=== PATIENT | male | born 1955 | race Caucasian/White ===

== ENCOUNTER 2017-06-11 13:37 | Day surgery (SDC) | payer BC ==
[2017-06-11 13:42] VITALS: BP 155/81
== END 2017-06-11 13:38 | disposition home or self-care (01) ==
LOC: AMB 13:37
PROVIDERS: ATTEND Ophthalmology
PROC: 085J3ZZ Destruction of Right Lens, Percutaneous Approach (ICD-10-PCS; principal; 2017-06-11)
DX: H26.491 Other secondary cataract, right eye (principal); E11.9 Type 2 diabetes mellitus without complications; I10 Essential (primary) hypertension; Z68.41 Body mass index [BMI] 40.0-44.9, adult